=== PATIENT | male | born 1945 | race Caucasian/White ===

== ENCOUNTER 2017-04-23 16:25 | Emergency (ER) | payer MEDICARE, BC ==
[~2017-04-23] VITALS: Ht 175.3 cm; Wt 75.0 kg
[2017-04-23 19:00] VITALS: BP 130/67
== END 2017-04-23 19:35 | disposition home or self-care (01) ==
LOC: ER 16:25
DX: E11.649 Type 2 diabetes mellitus with hypoglycemia without coma (principal); Y92.410 Unspecified street and highway as the place of occurrence of the external cause; Z79.4 Long term (current) use of insulin; V49.9XXA Car occupant (driver) (passenger) injured in unspecified traffic accident, initial encounter; Y93.89 Activity, other specified; Y92.89 Other specified places as the place of occurrence of the external cause; Y99.8 Other external cause status
CPT/HCPCS: 82962; 99283